=== PATIENT | female | born 1980 | race Caucasian/White ===

== ENCOUNTER 2017-06-18 16:21 | Emergency (ER) | payer BC ==
[~2017-06-18] VITALS: Ht 160 cm; Wt 76.2 kg
[2017-06-18 16:29] VITALS: BP_SYST 149
[2017-06-18] MEDS ORDERED: BACITRACIN 1 GM OINT TP ONE (17:45)
[2017-06-18] MEDS ORDERED: LIDOCAINE 1% 10 MG/ML, 20 ML MDV IJ ONE (17:45)
[2017-06-18] MEDS ORDERED: DIPH-TET-PERTUS Vaccine 0.5 ML VIAL (ADACEL) IM ONE (17:45)
[2017-06-18 19:55] VITALS: BP_SYST 138
== END 2017-06-18 19:55 | disposition home or self-care (01) ==
LOC: SED 16:21
DX: S61.215A Laceration without foreign body of left ring finger without damage to nail, initial encounter (principal); I10 Essential (primary) hypertension; W26.0XXA Contact with knife, initial encounter; Y93.89 Activity, other specified; Y92.89 Other specified places as the place of occurrence of the external cause; Y99.8 Other external cause status
CPT/HCPCS: 12001; 90471; 90715; 99283; J2001